=== PATIENT | female | born 1995 | race Asian ===

== ENCOUNTER 2016-06-11 00:11 | Emergency (ER) | payer OTHER ==
[2016-06-11] MEDS ORDERED: Ondansetron INJ* 2 MG/ML VIAL IV ONE (01:03)
[2016-06-11] MEDS ORDERED: NS 0.9% 1000 ML* 1,000 ML IV ONE (01:03)
[2016-06-11] MEDS ORDERED: Ketorolac INJ* 30 MG/ML 1 ML VIAL IV PUSH ONE (01:03)
--- NOTE | 2016-06-11 01:09 | ED ---
Abdominal Pain/Female - HPI Summary HPI Summary: Patient presents for delayed evaluation of upper abdominal pain since after eating [employer] [place]. Started in the epigastrium and since then has spread to diffuse upper abdomen with associated nausea. Denies chest pain, systemic symptoms, allev factors attempted. Had some slight back twinge at a different time and a family physician prescribed flexeril. - History of Current Complaint Chief Complaint: EDAbdPain Stated Complaint: ABD PAIN Time Seen by Provider: 06/11/16 00:28 Hx Obtained From: Patient, Other: - Friend Onset/Duration: Sudden Onset, Lasting Hours Timing: Constant Severity Initially: Moderate Severity Currently: Moderate Pain Intensity: 6 Location: Discrete At: RUQ, Epigastric Radiates: No Character: Sharp, Cramping Aggravating Factor(s): Food Alleviating Factor(s): Nothing Associated Signs and Symptoms: Positive: Nausea. Negative: Fever, Chest Pain, Dizzy, Back Pain, Urinary Symptoms, Vomiting Allergies/Adverse Reactions: Allergies Allergy/AdvReac Type Severity Reaction Status Date / Time No Known Allergies Allergy Verified 06/11/16 01:25 PMH/Surg Hx/FS Hx/Imm Hx Previously Healthy: Yes Infectious Disease History: No Infectious Disease History: Denies: Traveled Outside the [place] in Last 30 Days Review of Systems Constitutional: Negative Negative: Fever, Chills Cardiovascular: Negative Negative: Chest Pain Respiratory: Negative Negative: Shortness Of Breath Positive: Abdominal Pain, Nausea. Negative: Vomiting, Diarrhea Genitourinary: Negative Positive: no symptoms reported All Other Systems Reviewed And Are Negative: Yes Physical Exam Triage Information Reviewed: Yes Vital Signs On Initial Exam: Initial Vitals Temp Pulse Resp BP Pulse Ox 97.2 F 75 18 124/80 100 06/11/16 00:13 06/11/16 00:13 06/11/16 00:13 06/11/16 00:13 06/11/16 00:13 Vital Signs Reviewed: Yes Appearance: Positive: Well-Nourished, Pain Distress. Negative: Ill-Appearing Skin: Positive: Warm, Skin Color Reflects Adequate Perfusion, Dry Head/Face: Positive: Normal Head/Face Inspection Eyes: Positive: Normal, EOMI Neck: Positive: Supple, Nontender Respiratory/Lung Sounds: Positive: Clear to Auscultation, Breath Sounds Present Cardiovascular: Positive: Normal, RRR, Pulses are Symmetrical in both Upper and Lower Extremities Abdomen Description: Positive: Soft, Guarding. Negative: CVA Tenderness (R), CVA Tenderness (L), Distended, McBurney's Point Tenderness, Peritoneal Signs, Pulsatile Mass, Splenomegaly Musculoskeletal: Positive: Normal, Strength/ROM Intact Neurological: Positive: Normal, Sensory/Motor Intact, Alert, Oriented to Person Place, Time, CN Intact II-III Diagnostics - Vital Signs Vital Signs Temp Pulse Resp BP Pulse Ox 06/11/16 00:13 97.2 F 75 18 124/80 100 - Laboratory Result Diagrams: 06/11/16 01:15 06/11/16 01:15 Lab Statement: Any lab studies that have been ordered have been reviewed, and results considered in the medical decision making process. Abdominal Pain Fem Course/Dx - Diagnoses Differential Diagnosis: Positive: Constipation, Gall Bladder Disease, Pancreatitis, Other - Primary concern for biliary colic with subsequent pancreatitis. Dilated gallbladder on bedside US, but no visible stone or pericholecystic fluid/wall thickening. Provider Diagnoses: Peptic ulcer disease Discharge - Discharge Plan Condition: Improved Disposition: HOME Prescriptions: Ondansetron TAB* [Zofran Tab*] 4 mg PO Q6H PRN #10 tab PRN Reason: Nausea Sucralfate SUSP (NF) [Carafate SUSP (NF)] 1 gm PO Q6H #120 ml Patient Education Materials: Peptic Ulcer (ED) Referrals: Darrin Pitts MD [Medical Doctor] -
[2016-06-11 01:40] LABS: Hematocrit 36 % (35-47); Hemoglobin 11.4 g/dl (12.0-16.0); Mean Corpuscular HGB Conc 32 g/dl (31-36); Mean Corpuscular Hemoglobin 25 pg (27-31); Mean Corpuscular Volume 78 fL (80-97); Mean Platelet Volume 9 um3 (7.4-10.4); Red Blood Count 4.64 10^6/ul (4.0-5.4); Red Cell Distribution Width 15 % (10.5-15); White Blood Count 11.9 10^3/ul (3.5-10.8)
[2016-06-11 01:52] LABS: ALT 9 U/L (7-52); AST 13 U/L (13-39); Albumin 3.6 g/dL (3.2-5.2); Alkaline Phosphatase 52 U/L (34-104); Anion Gap 5 mmol/L (2-11); BUN/Creatinine Ratio 22.2 (8-20); Blood Urea Nitrogen 18 mg/dL (6-24); CO2 Carbon Dioxide 23 mmol/L (22-32); Chloride 102 mmol/L (101-111); EGFR African American 114.8 (>60); EGFR Non-African American 89.3 (>60); Globulin 3.4 g/dL (2-4); Glucose 133 mg/dL (70-100); Lipase 27 U/L (11.0-82.0); Potassium 3.8 mmol/L (3.5-5.0); Sodium 130 mmol/L (133-145)
[2016-06-11] MEDS ORDERED: Al Hydrox/Mg Hydrox/Simet LIQ* 30 ML UDC PO ONE (01:57)
[2016-06-11] MEDS ORDERED: Lidocaine 2% VISCOUS* 15 ML UDC PO ONE (01:57)
[2016-06-11] MEDS ORDERED: Iohexol 300* (CONTRAST) 10 ML SDV IV ONE (02:55)
[2016-06-11 03:22] LABS: Urine Bacteria Absent (Absent); Urine Bilirubin Negative (Negative); Urine Glucose Negative (Negative); Urine Nitrite Negative (Negative)
[2016-06-11 03:50] VITALS: BP 122/68
--- NOTE | 2016-06-11 08:07 | RAD ---
CLINICAL HISTORY: Right upper quadrant pain COMPARISON: None TECHNIQUE: Contrast enhanced CT examination of the abdomen and pelvis from the lung bases through the initial tuberosities. The patient received 100 mL Omnipaque 300 intravenously prior to imaging.The patient received oral contrast as well prior to imaging. FINDINGS: VISUALIZED LUNG BASES: The visualized lung bases are grossly clear. There is no pleural effusion. ABDOMEN AND PELVIS: The liver, spleen, pancreas and adrenal glands are grossly normal in appearance. The gallbladder is normal. The kidneys are normal in appearance without focal mass, calcification or signs of hydronephrosis. The oral contrast has progressed as far as the distal small bowel which somewhat limits evaluation of the distal small bowel and colon. The small and large bowel are not distended. The patient's normal appendix is identified in the right lower quadrant (axial image 57). There is no gross retroperitoneal or mesenteric lymphadenopathy. The pelvic viscera is normal in appearance. A tampon is noted in the vagina. The abdominal aorta and iliac arteries are normal in course and diameter. There are no sinister bone lesions. IMPRESSION: Normal CT examination.
== END 2016-06-11 03:50 | disposition home or self-care (01) ==
LOC: ED 00:11
DX: K27.9 Peptic ulcer, site unspecified, unspecified as acute or chronic, without hemorrhage or perforation (principal)
CPT/HCPCS: 36415; 74177; 80053; 81003; 81015; 83690; 84702; 85025; 96374; 96375; 99284; A9270-GY; J1885; J2405; Q9967

== ENCOUNTER 2016-08-22 06:44 | Emergency (ER) | payer OTHER ==
[2016-08-22] MEDS ORDERED: HYDROmorphone* 1 MG/ML 1 ML SYR ONE (07:51)
[2016-08-22] MEDS ORDERED: Ondansetron INJ* 2 MG/ML VIAL ONE (07:52)
[2016-08-22] MEDS ORDERED: Ondansetron INJ* 2 MG/ML VIAL IV ONE (07:53)
[2016-08-22] MEDS ORDERED: HYDROmorphone* 1 MG/ML 1 ML SYR IV SLOW PU ONE (07:53)
[2016-08-22] MEDS ORDERED: NS 0.9% 1000 ML* 1,000 ML IV ONE (07:59)
[2016-08-22 08:24] LABS: Hematocrit 33 % (35-47); Hemoglobin 10.3 g/dl (12.0-16.0); Mean Corpuscular HGB Conc 31 g/dl (31-36); Mean Corpuscular Hemoglobin 22 pg (27-31); Mean Platelet Volume 9 um3 (7.4-10.4); Red Blood Count 4.74 10^6/ul (4.0-5.4); Red Cell Distribution Width 17 % (10.5-15); White Blood Count 11.9 10^3/ul (3.5-10.8)
[2016-08-22 08:26] LABS: Comments Flag Yes
[2016-08-22 08:27] LABS: Mean Corpuscular Volume 70 fL (80-97)
[2016-08-22 08:40] LABS: ALT 12 U/L (7-52); AST 15 U/L (13-39); Albumin 3.9 g/dL (3.2-5.2); Alkaline Phosphatase 55 U/L (34-104); Amylase 67 U/L (29-103); Anion Gap 8 mmol/L (2-11); BUN/Creatinine Ratio 16.1 (8-20); Blood Urea Nitrogen 14 mg/dL (6-24); C Reactive Protein 8.33 mg/L (< 5.00); CO2 Carbon Dioxide 23 mmol/L (22-32); Calcium 9.3 mg/dL (8.6-10.3); Chloride 103 mmol/L (101-111); Creatine Kinase 102 U/L (10-223); EGFR African American 105.7 (>60); EGFR Non-African American 82.2 (>60); Globulin 3.6 g/dL (2-4); Glucose 99 mg/dL (70-100); Lipase 37 U/L (11.0-82.0); Magnesium 1.7 mg/dL (1.9-2.7); Potassium 3.9 mmol/L (3.5-5.0); Sodium 134 mmol/L (133-145); Total Protein 7.5 g/dL (6.4-8.9)
--- NOTE | 2016-08-22 09:08 | RAD ---
Indication: Right upper quadrant pain, flank pain. Real-time sonography of the right upper quadrant was performed. The liver is normal in size. No focal lesions or intrahepatic ductal dilatation is noted. The gallbladder demonstrates small gallstone. No pericholecystic fluid or wall thickening is identified. The common duct measures 3.3 mm. Right kidney measures 9.3 x 5.5 x 4.0 cm. No pericholecystic fluid is identified. The pancreatic head, neck and proximal body demonstrates no mass or pancreatic ductal dilatation. IMPRESSION: Cholelithiasis without evidence of biliary ductal dilatation.
--- NOTE | 2016-08-22 09:12 | RAD ---
Indication: Right flank pain, epigastric pain. 2 views of the chest including dual energy PA views demonstrate no mediastinal shift. Heart is of normal size and configuration. Lung herndon are clear. IMPRESSION: No active cardiopulmonary disease is noted.
[2016-08-22 10:11] LABS: Urine Bacteria 2+ (Absent); Urine Bilirubin Negative (Negative); Urine Glucose Negative (Negative); Urine Nitrite Negative (Negative)
[2016-08-22] MEDS ORDERED: Magnesium Oxide TAB* 400 MG PO ONE (11:53)
[2016-08-22 12:26] VITALS: BP 115/71
--- NOTE | 2016-08-22 18:07 | ED ---
Crescencio Skinner Billy, scribed for Britni Massey MD on 08/22/16 at 0756 . Abdominal Pain/Female - HPI Summary HPI Summary: Patient is a 21 year-old female coming to [facility] for evaluation of right flank pain since 0200. She states that the pain radiates to the RUQ and occasionally to the epigastric. Patient reports pain severity 8/10. Her pain is improved when pressing on her right flank. Since the onset of her pain, she has had 4-5 episodes of emesis that appeared reddish-brown in color. She believed the pain may have been musculoskeletal in nature, so she took Flexeril for her pain with no improvement. She also took 1500mg Metformin ER and oral control, as prescribed. She has had similar episodes in the past, but today is the worst it has been, and the pain has subsided spontaneously in the past. She denies any urinary symptoms at this time. She reports that she had fried food and cheese last night. [facility] 08/09-08/13. A0. She has a history of insulin resistance and PCOS. - History of Current Complaint Chief Complaint: EDAbdPain Stated Complaint: RIGHT SIDED MID PAIN Time Seen by Provider: 08/22/16 07:39 Hx Obtained From: Patient Hx Last Menstrual Period: 08/09/16 ?: No Onset/Duration: Gradual Onset, Lasting Hours, Still Present Timing: Constant Severity Initially: Moderate Severity Currently: Moderate Pain Intensity: 8 Pain Scale Used: 0-10 Numeric Location: Flank Radiates: Yes Radiates to: Other - RUQ, epigastrium Character: Sharp Aggravating Factor(s): Nothing Alleviating Factor(s): Other: - Pressing on right flank Associated Signs and Symptoms: Positive: Nausea, Vomiting, Other: - reddish- brown emesis. Negative: Fever, Urinary Symptoms Allergies/Adverse Reactions: Allergies Allergy/AdvReac Type Severity Reaction Status Date / Time No Known Allergies Allergy Verified 08/22/16 07:42 PMH/Surg Hx/FS Hx/Imm Hx Endocrine/Hematology History: Reports: Other Endocrine/Hematological Disorders - Insulin resistance Denies: Hx Diabetes Cardiovascular History: Denies: Hx Hypertension History: Reports: Other Problems/Disorders - PCOS Denies: Hx Dialysis, Hx Renal Disease - Surgical History Surgery Procedure, Year, and Place: TONSILS Infectious Disease History: No Infectious Disease History: Reports: Traveled Outside the [place] in Last 30 Days - [place] - Family History Family History: Father has a history of HLD. - Social History Occupation: Student Alcohol Use: Occasionally Substance Use Type: Reports: None Smoking Status (MU): Never Smoked Tobacco Review of Systems Negative: Fever ENT: Negative Cardiovascular: Negative Respiratory: Negative Positive: Abdominal Pain, Vomiting, Nausea Negative: dysuria, frequency, hematuria, urgency Neurological: Negative Psychological: Normal All Other Systems Reviewed And Are Negative: Yes Physical Exam Triage Information Reviewed: Yes Vital Signs On Initial Exam: Initial Vitals Temp Pulse Resp BP Pulse Ox 97.9 F 82 16 140/95 100 08/22/16 07:13 08/22/16 07:13 08/22/16 07:13 08/22/16 07:13 08/22/16 07:13 Vital Signs Reviewed: Yes Appearance: Positive: Well-Nourished, Ill-Appearing, Pain Distress - Moderate pain distress Skin: Positive: Warm, Skin Color Reflects Adequate Perfusion, Dry Head/Face: Positive: Normal Head/Face Inspection Eyes: Positive: EOMI, Conjunctiva Clear ENT: Positive: Hearing grossly normal. Negative: Muffled/hoarse voice Neck: Positive: Supple, Nontender, No Lymphadenopathy Respiratory/Lung Sounds: Positive: Clear to Auscultation, Breath Sounds Present Cardiovascular: Positive: RRR, Pulses are Symmetrical in both Upper and Lower Extremities. Negative: Murmur Abdomen Description: Positive: No Organomegaly, Soft, CVA Tenderness (R), Other : - Tender to the epigastrium and RUQ.. Negative: CVA Tenderness (L), Distended , Guarding, Hernia @, Hepatomegaly, McBurney's Point Tenderness, Peritoneal Signs, Pulsatile Mass, Splenomegaly Bowel Sounds: Positive: Hypoactive Musculoskeletal: Positive: Strength/ROM Intact. Negative: Edema Left, Edema Right Neurological: Positive: Sensory/Motor Intact, Alert, Oriented to Person Place, Time. Negative: Facial Droop, Focal Deficit @, Slurred Speech Psychiatric: Positive: Normal Diagnostics - Vital Signs Vital Signs Temp Pulse Resp BP Pulse Ox 08/22/16 07:39 97.9 F 82 18 140/95 100 08/22/16 07:13 97.9 F 82 16 140/95 100 - Laboratory Lab Results: Lab Results 08/22/16 08/22/1608/22/17 Range/Units 08:00 08:00 08:00 WBC 11.9 H (3.5-10.8) 10^3/ul RBC 4.74 (4.0-5.4) 10^6/ul Hgb 10.3 L (12.0-16.0) g/dl Hct 33 L (35-47) % MCV 70 L (80-97) fL MCH 22 L (27-31) pg MCHC 31 (31-36) g/dl RDW 17 H (10.5-15) % Plt Count 337 (150-450) 10^3/ul MPV 9 (7.4-10.4) um3 Neut % (Auto) 69.7 (38-83) % Lymph % (Auto) 21.5 L (25-47) % Lamb % (Auto) 7.8 (1-9) % Eos % (Auto) 0.2 (0-6) % Baso % (Auto) 0.8 (0-2) % Absolute Neuts (auto) 8.3 H (1.5-7.7) 10^3/ul Absolute Lymphs (auto) 2.6 (1.0-4.8) 10^3/ul Absolute Monos (auto) 0.9 H (0-0.8) 10^3/ul Absolute Eos (auto) 0 (0-0.6) 10^3/ul Absolute Basos (auto) 0.1 (0-0.2) 10^3/ul Absolute Nucleated RBC 0 10^3/ul Nucleated RBC % 0 INR (Anticoag Therapy) (0.89-1.11) APTT (26.0-36.3) seconds Sodium 134 (133-145) mmol/L Potassium 3.9 (3.5-5.0) mmol/L Chloride 103 (101-111) mmol/L Carbon Dioxide 23 (22-32) mmol/L Anion Gap 8 (2-11) mmol/L BUN 14 (6-24) mg/dL Creatinine 0.87 (0.51-0.95) mg/dL Est GFR ( Amer) 105.7 (>60) Est GFR (Non-Af Amer) 82.2 (>60) BUN/Creatinine Ratio 16.1 (8-20) Glucose 99 (70-100) mg/dL Lactic Acid 2.4 H* (0.5-2.0) mmol/L Calcium 9.3 (8.6-10.3) mg/dL Magnesium 1.7 L (1.9-2.7) mg/dL Total Bilirubin 0.50 (0.2-1.0) mg/dL AST 15 (13-39) U/L ALT 12 (7-52) U/L Alkaline Phosphatase 55 (34-104) U/L Total Creatine Kinase 102 (10-223) U/L Troponin I 0.00 (<0.04) ng/mL C-Reactive Protein 8.33 H (< 5.00) mg/L Total Protein 7.5 (6.4-8.9) g/dL Albumin 3.9 (3.2-5.2) g/dL Globulin 3.6 (2-4) g/dL Albumin/Globulin Ratio 1.1 (1-3) Amylase 67 (29-103) U/L Lipase 37 (11.0-82.0) U/L Beta HCG, Quant < 0.60 mIU/mL Urine Color Urine Appearance Urine pH (5-9) Ur Specific [place] (1.010-1.030) Urine Protein (Negative) Urine Ketones (Negative) Urine Blood (Negative) Urine Nitrate (Negative) Urine Bilirubin (Negative) Urine Urobilinogen (Negative) Ur Leukocyte Esterase (Negative) Urine WBC (Auto) (Absent) Urine RBC (Auto) (Absent) Ur Squamous Epith Cells (Absent) Urine Bacteria (Absent) Urine Glucose (Negative) 08/22/16 08/22/16 Range/Units 08:00 09:17 WBC (3.5-10.8) 10^3/ul RBC (4.0-5.4) 10^6/ul Hgb (12.0-16.0) g/dl Hct (35-47) % MCV (80-97) fL MCH (27-31) pg MCHC (31-36) g/dl RDW (10.5-15) % Plt Count (150-450) 10^3/ul MPV (7.4-10.4) um3 Neut % (Auto) (38-83) % Lymph % (Auto) (25-47) % Lamb % (Auto) (1-9) % Eos % (Auto) (0-6) % Baso % (Auto) (0-2) % Absolute Neuts (auto) (1.5-7.7) 10^3/ul Absolute Lymphs (auto) (1.0-4.8) 10^3/ul Absolute Monos (auto) (0-0.8) 10^3/ul Absolute Eos (auto) (0-0.6) 10^3/ul Absolute Basos (auto) (0-0.2) 10^3/ul Absolute Nucleated RBC 10^3/ul Nucleated RBC % INR (Anticoag Therapy) 1.06 (0.89-1.11) APTT 25.3 L (26.0-36.3) seconds Sodium (133-145) mmol/L Potassium (3.5-5.0) mmol/L Chloride (101-111) mmol/L Carbon Dioxide (22-32) mmol/L Anion Gap (2-11) mmol/L BUN (6-24) mg/dL Creatinine (0.51-0.95) mg/dL Est GFR ( Amer) (>60) Est GFR (Non-Af Amer) (>60) BUN/Creatinine Ratio (8-20) Glucose (70-100) mg/dL Lactic Acid (0.5-2.0) mmol/L Calcium (8.6-10.3) mg/dL Magnesium (1.9-2.7) mg/dL Total Bilirubin (0.2-1.0) mg/dL AST (13-39) U/L ALT (7-52) U/L Alkaline Phosphatase (34-104) U/L Total Creatine Kinase (10-223) U/L Troponin I (<0.04) ng/mL C-Reactive Protein (< 5.00) mg/L Total Protein (6.4-8.9) g/dL Albumin (3.2-5.2) g/dL Globulin (2-4) g/dL Albumin/Globulin Ratio (1-3) Amylase (29-103) U/L Lipase (11.0-82.0) U/L Beta HCG, Quant mIU/mL Urine Color Yellow Urine Appearance Clear Urine pH 6.0 (5-9) Ur Specific [place] 1.021 (1.010-1.030) Urine Protein Negative (Negative) Urine Ketones Negative (Negative) Urine Blood 1+ H (Negative) Urine Nitrate Negative (Negative) Urine Bilirubin Negative (Negative) Urine Urobilinogen Negative (Negative) Ur Leukocyte Esterase Negative (Negative) Urine WBC (Auto) Absent (Absent) Urine RBC (Auto) 1+(3-5/hpf) H (Absent) Ur Squamous Epith Cells Present H (Absent) Urine Bacteria 2+ H (Absent) Urine Glucose Negative (Negative) Result Diagrams: 08/22/16 08:00 08/22/16 08:00 Lab Statement: Any lab studies that have been ordered have been reviewed, and results considered in the medical decision making process. - Radiology CXR Xray Interpretation: No Acute Changes Radiology Interpretation Completed By: Radiologist - Ultrasound No standard instances Ultrasound Interpretation Completed By: Radiologist - Gallbladder ultrasound: Cholelithiasis without evidence of biliary ductal dilatation. Re-Evaluation - Re-Evaluation First Eval Re-Evaluation Time: 11:32 Comment: Patient feels better at this time. Imaging and lab results reviewed with the patient's father, who is a second worker. Abdominal Pain Fem Course/Dx - Course Course Of Treatment: 21 year-old female coming to the ED for evaluation of right flank pain and epigastric pain. In the ED course, the patient was hydrated with IV fluids, given Zofran for nausea and vomiting, and Dilaudid for pain management. CXR shows no acute findings. Gallbladder ultrasound shows cholelithiasis without evidence of biliary ductal dilatation. Labs reviewed. Patient care was discussed with the patient's father. She will be discharged home to follow up with PCP. - Diagnoses Provider Diagnoses: Cholelithiases, RUQ abdominal pain Discharge - Discharge Plan Condition: Stable Disposition: HOME Patient Education Materials: Low Fat Diet (ED), Gallstones (ED) Referrals: [facility] [Outside] - 2 Days Rambo Gomez MD [Medical Doctor] - Additional Instructions: FOLLOW UP WITH DR. GOMEZ (SURGERY). RETURN TO THE EMERGENCY DEPARTMENT WITH WORSENING SYMPTOMS. The documentation as recorded by the Crescencio carter Billy accurately reflects the service I personally performed and the decisions made by , Britni Massey MD.
== END 2016-08-22 12:25 | disposition home or self-care (01) ==
LOC: ED 06:44
DX: K80.20 Calculus of gallbladder without cholecystitis without obstruction (principal); R10.11 Right upper quadrant pain; R11.2 Nausea with vomiting, unspecified
CPT/HCPCS: 36415; 71020; 76705; 80053; 81003; 81015; 82150; 82550; 83605; 83690; 83735; 84484; 84702; 85025; 85610; 85730; 86140; 87086; 96374; 96375; 99283; J1170; J2405